=== PATIENT | male | born 1960 | race Caucasian/White ===

== ENCOUNTER → 2022-07-12 | Outpatient (CLI) | payer MEDICARE, SELFPAY ==
[2022-07-12 12:20] LABS: Amphetamine Urine VISTA NEGATIVE (<1000 ng/mL); Barbiturate Urine VISTA NEGATIVE (< 200 ng/mL); Benzodiazepine Urine VISTA NEGATIVE (< 200 ng/mL); Cocaine Urine VISTA NEGATIVE (< 300 ng/mL); Ecstacy Urine VISTA NEGATIVE (< 500 ng/mL); Methadone Urine VISTA NEGATIVE (< 300 ng/mL); PCP Urine VISTA NEGATIVE (< 25 ng/mL); THC Urine VISTA NEGATIVE (< 50 ng/mL); Vista UDS pH Range 6
== END | disposition home or self-care (01) ==
PROVIDERS: Referring Provider Anesthesiology Pain Medicine; Visit Provider Anesthesiology Pain Medicine
DX: F11.20 Opioid dependence, uncomplicated (principal)
CPT/HCPCS: 80307

== ENCOUNTER 2022-11-11 10:08 | Day surgery (SDC) | payer MEDICARE, MEDICAID, SELFPAY ==
[2022-11-11] VITALS (8 sets, daily range): BP systolic 86–138; BP diastolic 44–67; PULSE 60–66; RESP 16; TEMP 36.1–36.2; O2SAT 92–100; BMI 37.4
[2022-11-11] MEDS: Lactated Ringers 1,000 ML 15 ML IV ×2 (10:54→15:16)
[2022-11-11 11:57] LABS: Bedside Glucose 180 mg/dL (74-106)
--- NOTE | 2022-11-11 13:01 | RAD_ITS ---
STUDY: PAIN PUMP INSERTION. REASON FOR EXAM: Male, 62 years old. INSERTION PAIN PUMP FLUOROSCOPY TIME (if supplied): ( 63.9 seconds ) minutes/seconds. 41.03 mGy TECHNIQUE: Intraoperative imaging provided for pain pump insertion. COMPARISON: None. RAD/Spine 1 View Any Level IMPRESSION: Intraoperative fluoroscopic imaging provided for pain pump insertion. Electronically Signed: Kt Chong MD at 14:39 EDT ,
[2022-11-11] MEDS: Lidocaine 0.5%/Epi 1:200 (50ml 50 ML Vial INFILT (14:15)
[2022-11-11] MEDS: Bupivacaine 0.25% 30 ML Vial (14:16)
--- NOTE | 2022-11-11 16:55 | SUR.PHASEII ---
HAS ACUTE ON CHRONIC PAIN, INDICATED HE WAS HARDLY MEDICATED POST-OP. PATIENT WAS HOPING TO HAVE VERY LITTLE PAIN POST-OP, REVIEWED ALL THE MEDS GIVEN IN PACU IN ADDITION TO PAIN PUMP WHICH IS NOW RUNNING. OFFERED EDUCATION & ENCOURAGEMENT, DISCUSSED EXPECTATIONS. WILL GIVE PERCOCET ORDERED. INSTRUCTED TO RESUME ROUTINE PAIN MEDS AT HOME. COUSIN WITH PATIENT, ENCOURAGING HIM.
[2022-11-11] MEDS: Oxycodone/Apap 5/325 Tablet PO (17:05)
== END 2022-11-11 18:38 | disposition home or self-care (01) ==
LOC: SDC 10:12 → AC 10:13
PROVIDERS: Referring Provider Anesthesiology Pain Medicine; Visit Provider Anesthesiology Pain Medicine
PROC: (CPT 62362; principal; 2022-11-11 11:25)
DX: G89.4 Chronic pain syndrome (principal); I50.9 Heart failure, unspecified; E11.42 Type 2 diabetes mellitus with diabetic polyneuropathy; I48.91 Unspecified atrial fibrillation; M51.36 Other intervertebral disc degeneration, lumbar region; M51.37 Other intervertebral disc degeneration, lumbosacral region; Z79.01 Long term (current) use of anticoagulants; G47.30 Sleep apnea, unspecified; Z79.899 Other long term (current) drug therapy; Z79.84 Long term (current) use of oral hypoglycemic drugs; Z95.0 Presence of cardiac pacemaker
CPT/HCPCS: 62362; 01991; 72020; 76000; 82962; J7040; J7120; J2274; J2405; J3490